=== PATIENT | female | born 1970 | race Caucasian/White ===

== ENCOUNTER 2017-08-24 09:19 | Emergency (ER) | payer MEDICAID ==
[~2017-08-24] VITALS: Ht 162.6 cm; Wt 77.0 kg
[~2017-08-24 09:19] MED LIST: ALBU8HFA IH; CYCL-1 PO; HYDR-569 PO; PRED20TA PO; QUET25TA PO
[2017-08-24] MEDS ORDERED: dexamethasone sod phosphate 10mg/ml inj IM STA (09:23)
[2017-08-24] MEDS ORDERED: albuterol 2.5 MG/3 ML nebule NEB ONE (09:25)
[2017-08-24] MEDS ORDERED: ALPRAZolam 0.5mg tablet PO ONE (09:25)
[2017-08-24 10:49] VITALS: BP 131/74
== END 2017-08-24 10:50 | disposition home or self-care (01) ==
LOC: ER 09:19
DX: F41.9 Anxiety disorder, unspecified (principal); H10.9 Unspecified conjunctivitis; R06.02 Shortness of breath; J45.909 Unspecified asthma, uncomplicated; Z79.899 Other long term (current) drug therapy
CPT/HCPCS: 96372; 99284; J1100

== ENCOUNTER 2017-12-17 11:22 | Emergency (ER) | payer MEDICAID ==
[~2017-12-17] VITALS: Ht 170.2 cm; Wt 170.0 kg
[2017-12-17 11:26] VITALS: BP 143/83
[2017-12-17] MEDS ORDERED: HYDROcodone/acetaminophen 10/325mg tab PO ONE (11:40)
[2017-12-17] MEDS ORDERED: ketorolac trometh inj. 60 MG/2 ML VIAL IM ONE (11:40)
[2017-12-17] MEDS ORDERED: HYDR-565 PO (13:08)
== END 2017-12-17 14:51 | disposition home or self-care (01) ==
LOC: ER 11:22
DX: S86.002A Unspecified injury of left Achilles tendon, initial encounter (principal); J45.909 Unspecified asthma, uncomplicated; Z98.890 Other specified postprocedural states; Z79.899 Other long term (current) drug therapy; X50.3XXA Overexertion from repetitive movements, initial encounter; Y93.01 Activity, walking, marching and hiking; Y92.89 Other specified places as the place of occurrence of the external cause; Y99.8 Other external cause status
CPT/HCPCS: 29515; 73700; 96372; 99284; A6449; J1885

== ENCOUNTER 2019-03-18 19:35 | Emergency (ER) | payer MEDICAID ==
[~2019-03-18] VITALS: Ht 170.2 cm; Wt 77.3 kg
[~2019-03-18 19:35] MED LIST changes: +HYDR-4383 PO; -HYDR-569 PO
[2019-03-18 19:51] VITALS: BP 157/104
[2019-03-18] MEDS ORDERED: PRED20TA PO ×2 (21:39→21:43)
[2019-03-18] MEDS ORDERED: triamcinolone acetonide 40mg/ml inj IM ONE (21:40)
== END 2019-03-18 21:59 | disposition home or self-care (01) ==
LOC: ER 19:36
DX: J45.909 Unspecified asthma, uncomplicated (principal); F41.9 Anxiety disorder, unspecified; Z79.899 Other long term (current) drug therapy; Z98.890 Other specified postprocedural states
CPT/HCPCS: 93005; 96372; 99283; J3301

== ENCOUNTER 2021-04-28 15:27 | Emergency (ER) | payer MEDICAID ==
[~2021-04-28] VITALS: Ht 170.2 cm; Wt 86.0 kg
--- NOTE | 2021-04-28 17:04 | NUR ---
Pt is speaking in full sentences. C/O cough, sore throat, n/v/d x 2 days. +loss of taste and smell.
[2021-04-28 17:44] LABS: BASOPHILS # (AUTO) 0.1 X10'3 (0-0.2); BASOPHILS % (AUTO) 1.1 % (0-1); EOSINOPHILS % (AUTO) 0.1 % (0-6); HEMATOCRIT 44.1 % (35.0-45.0); HEMOGLOBIN 15.1 g/dl (12.0-16.0); LYMPHOCYTES # (AUTO) 1.6 X10'3 (1.1-4.8); LYMPHOCYTES % (AUTO) 23.4 % (21-51); MEAN CORPUSCULAR HEMOGLOBIN 37.1 PG (27.0-31.0); MEAN CORPUSCULAR HGB CONC 34.2 g/dL (33.0-36.5); MEAN CORPUSCULAR VOLUME 108.4 FL (78-98); MEAN PLATELET VOLUME 7.7 FL (7.4-10.4); MONOCYTES # (AUTO) 0.5 X10'3 (0-0.9); MONOCYTES % (AUTO) 7.8 % (2-12); NEUTROPHILS # (AUTO) 4.7 X10'3 (1.8-7.7); NEUTROPHILS % (AUTO) 67.6 % (42-75); PLATELET COUNT 151 X10'3 (140-440); RED BLOOD COUNT 4.07 X10'6 (4.20-5.60); RED CELL DISTRIBUTION WIDTH 13.7 % (11.5-14.5); WHITE BLOOD COUNT 6.9 X10'3 (4.5-11.0)
[2021-04-28 17:58] LABS: ALANINE AMINOTRANSFERASE 64 U/L (12-78); ALBUMIN 3.9 G/DL (3.4-5.0); ALBUMIN/GLOBULIN RATIO 1.1 (1.1-1.5); ALKALINE PHOSPHATASE 76 IU/L (46-116); ANION GAP 17 (8-16); ASPARTATE AMINO TRANSFERASE 113 U/L (10-37); BLOOD UREA NITROGEN 5 MG/DL (7-18); BUN/CREATININE RATIO 5.6 (6.6-38.0); CALCIUM 7.8 MG/DL (8.5-10.1); CHLORIDE 101 MMOL/L (99-107); CREATININE 0.89 MG/DL (0.40-0.90); GLUCOSE 118 MG/DL (70-104); POTASSIUM 3.2 MMOL/L (3.5-5.1); SODIUM 142 MMOL/L (135-145); TOTAL CARBON DIOXIDE 24.5 MMOL/L (24-32); TOTAL PROTEIN 7.4 G/DL (6.4-8.2); eGFR 67 ML/MIN
--- NOTE | 2021-04-28 18:06 | NUR ---
LAB CALLED [facility] 5.4. INFORMED ROSALIO CAN AND DR. Canchola
[2021-04-28] MEDS ORDERED: LORazepam 2 mg/ml vial IV ONE (18:10)
[2021-04-28] MEDS ORDERED: diphenhydrAMINE 50 mg/ml inj IV ONE (18:10)
[2021-04-28] MEDS ORDERED: CLINDAMYCIN/D5W 900mg/50ml 50 ML IV ONE (18:10)
[2021-04-28] MEDS ORDERED: famotidine/PF 10 mg/ml inj IV ONE (18:10)
[2021-04-28] MEDS ORDERED: dexamethasone sod phosphate 10mg/ml inj IV STA (18:10)
[2021-04-28] MEDS ORDERED: normal saline 1000ML IV soln IV ONE (18:15)
[2021-04-28] MEDS ORDERED: clindamycin-Cleocin 900mg/D5W 50 ML IV ONE (18:17)
[2021-04-28] MEDS ORDERED: iohexol 300mg/ml 100ml inj. ONE (18:17)
[2021-04-28] MEDS ORDERED: PRED20TA PO (18:59)
[2021-04-28] MEDS ORDERED: CLIN150C2 PO (18:59)
[2021-04-28 19:16] VITALS: BP 153/108
--- NOTE | 2021-04-28 20:50 | NUR ---
Fluid boluses completed. Patient discharge completed.
== END 2021-04-28 20:52 | disposition home or self-care (01) ==
LOC: ER 15:27
DX: J02.9 Acute pharyngitis, unspecified (principal); J06.9 Acute upper respiratory infection, unspecified; Z20.822 Contact with and (suspected) exposure to COVID-19; J45.909 Unspecified asthma, uncomplicated; F41.9 Anxiety disorder, unspecified; Z79.899 Other long term (current) drug therapy
CPT/HCPCS: 36415; 70491; 71045; 80053; 83605; 83880; 85025; 87040; 87635; 96361; 96365; 96375; 99285; C9803; J1100; J1200; J2060; J3490; J7030; Q9967

== ENCOUNTER 2022-08-13 18:04 | Emergency (ER) | payer MEDICAID ==
[~2022-08-13] VITALS: Ht 170.2 cm; Wt 80.0 kg
[2022-08-13] MEDS ORDERED: normal saline 1000ML IV soln IVB ONE (18:30)
[2022-08-13] MEDS ORDERED: iohexol 350MG/ML 100ml bottle IV ONE (18:45)
[2022-08-13 18:51] LABS: BASOPHILS # (AUTO) 0.1 X10'3 (0-0.2); BASOPHILS % (AUTO) 0.9 % (0-1); EOSINOPHILS % (AUTO) 0.7 % (0-6); HEMATOCRIT 39.2 % (35.0-45.0); HEMOGLOBIN 13.3 g/dl (12.0-16.0); LYMPHOCYTES # (AUTO) 1.8 X10'3 (1.1-4.8); LYMPHOCYTES % (AUTO) 27.3 % (21-51); MEAN CORPUSCULAR HEMOGLOBIN 35.9 PG (27.0-31.0); MEAN CORPUSCULAR VOLUME 105.6 FL (78-98); MEAN PLATELET VOLUME 7.9 FL (7.4-10.4); MONOCYTES # (AUTO) 0.8 X10'3 (0-0.9); MONOCYTES % (AUTO) 11.5 % (2-12); NEUTROPHILS # (AUTO) 3.9 X10'3 (1.8-7.7); NEUTROPHILS % (AUTO) 59.6 % (42-75); PLATELET COUNT 206 X10'3 (140-440); RED BLOOD COUNT 3.71 X10'6 (4.20-5.60); RED CELL DISTRIBUTION WIDTH 13.6 % (11.5-14.5); WHITE BLOOD COUNT 6.6 X10'3 (4.5-11.0)
[2022-08-13 19:02] LABS: D-DIMER 2.91 MG/L FEU (0-0.50)
[2022-08-13 19:06] LABS: ALANINE AMINOTRANSFERASE 103 U/L (12-78); ALBUMIN 3.1 G/DL (3.4-5.0); ALBUMIN/GLOBULIN RATIO 0.8 (1.1-1.5); ALKALINE PHOSPHATASE 90 IU/L (46-116); ANION GAP 13 (8-16); ASPARTATE AMINO TRANSFERASE 240 U/L (10-37); BILIRUBIN,TOTAL 2.1 MG/DL (0.1-1.0); BLOOD UREA NITROGEN 9 MG/DL (7-18); BUN/CREATININE RATIO 11.3 (6.6-38.0); CALCIUM 8.1 MG/DL (8.5-10.1); CHLORIDE 93 MMOL/L (99-107); GLUCOSE 133 MG/DL (70-104); POTASSIUM 3.6 MMOL/L (3.5-5.1); SODIUM 133 MMOL/L (135-145); TOTAL CARBON DIOXIDE 26.9 MMOL/L (24-32); eGFR 76 ML/MIN
[2022-08-13 19:14] LABS: ETHANOL 0.013 GM/DL (0.0-0.010)
[2022-08-13 21:04] VITALS: BP 148/91
== END 2022-08-13 21:24 | disposition home or self-care (01) ==
LOC: ER 18:05
DX: E86.0 Dehydration (principal); R55 Syncope and collapse; R20.0 Anesthesia of skin; J45.909 Unspecified asthma, uncomplicated; F41.9 Anxiety disorder, unspecified; Z72.89 Other problems related to lifestyle; Z98.890 Other specified postprocedural states; Z79.899 Other long term (current) drug therapy
CPT/HCPCS: 36415; 71045; 71275; 74174; 80053; 80320; 83880; 84484; 85025; 85379; 93005; 99285; J3490; J7030; Q9967

== ENCOUNTER 2023-03-24 09:00 | Emergency (ER) | payer MEDICAID | END 2023-03-24 10:21 | disposition left against medical advice (07) | LOC: ER 09:01 | DX: J45.909 Unspecified asthma, uncomplicated (principal); Z53.21 Procedure and treatment not carried out due to patient leaving prior to being seen by health care provider ==

== ENCOUNTER 2023-07-08 12:41 | Emergency (ER) | payer MEDICAID ==
[~2023-07-08] VITALS: Ht 170.2 cm; Wt 76.7 kg
[2023-07-08 13:02] VITALS: BP 154/101; PULSE 133; RESP 18; TEMP 98.1; O2SAT 96
== END 2023-07-08 13:47 | disposition left against medical advice (07) ==
LOC: ER 12:42
DX: R10.11 Right upper quadrant pain (principal); Z53.21 Procedure and treatment not carried out due to patient leaving prior to being seen by health care provider
CPT/HCPCS: 99281